=== PATIENT | female | born 1940 | race African-American/Black ===

== ENCOUNTER 2018-05-24 11:41 | Emergency (ER) | payer MEDICARE, OTHER ==
[~2018-05-24] VITALS: Ht 154.9 cm; Wt 72.6 kg
[2018-05-24 12:07] VITALS: BP 133/65
[2018-05-24] MEDS ORDERED: Fleet's Mineral Oil Enema RECTAL ONE (12:30)
[2018-05-24] MEDS ORDERED: COLACE100 MG ORAL (13:30)
[2018-05-24 15:10] VITALS: BP_SYST 133; BP_SYST 134; BP_DIAS 65; BP_DIAS 72
--- NOTE | 2018-05-24 15:43 | Emergency Room Report ---
History of Present Illness General Chief Complaint: General Complaint Source: Patient Present Illness HPI Patient is a 77-year-old female who presented after having increased abdominal discomfort and decreased bowel movements. The patient reported having increased rectal fullness. The she had been taking stool softeners without any improvement. She denies any fever. She denies any severe pain. She reports having passed a small bowel movement this morning. She denies any pain with eating. She states she's been otherwise healthy Allergies: Coded Allergies: No Known Allergies (Unverified , 05/24/18) Patient History Past Medical History: see triage record Now: No Reviewed Nursing Documentation: PMH: Agreed; PSxH: Agreed Nursing Documentation-PMH Past Medical History: No History, Except For Hx Hypertension: Yes Review of Systems All Other Systems: negative except mentioned in HPI Physical Exam Vital Signs Date Time Temp Pulse Resp B/P (MAP) Pulse Ox O2 Delivery O2 Flow Rate FiO2 05/24/18 11:44 98.4 111 18 146/80 96 Room Air 98.4 General Appearance: well appearing, no apparent distress, alert, GCS 15, thin, Chronically Ill Head: normocephalic, atraumatic ENT: hearing grossly normal, normal voice Neck: full range of motion, supple Respiratory: no respiratory distress, speaking full sentences Cardiovascular #1: normal peripheral pulses, regular rate, rhythm Gastrointestinal: normal inspection, normal bowel sounds Musculoskeletal: normal inspection, no calf tenderness Neurologic: normal inspection, alert, oriented x3, responsive, normal gait Psychiatric: mood/affect normal Skin: no rash Medical Decision Making Diagnostic Impression: Primary Impression: Constipation ER Course Patient presented for abdominal pain. Differential diagnoses included ischemic bowel, appendicitis, perforated viscus, abdominal aortic aneurysm, inferior myocardial infarction, viral gastroenteritis Patient was noted to have some constipation. The patient was noted to have a small bowel movement after enema. The patient does not show any evidence of acute abdomen at this time. The patient was given prescription for lactulose and advised follow-up with her primary care physician. The patient is advised to return if she began having increased pain persistent vomiting or other concerns. Last Vital Signs Date Time Temp Pulse Resp B/P (MAP) Pulse Ox O2 Delivery O2 Flow Rate FiO2 05/24/18 15:10 98.2 83 27 134/72 100 Room Air 98.2 Status: improved Disposition: HOME, SELF-CARE Condition: Stable Scripts Docusate Sodium* (COLACE*) 100 Mg Capsule 100 MG ORAL TWICE A DAY, #30 CAP Prov: Rudolph Balbuena MD 05/24/18 Referrals: [facility] (PCP) Patient Instructions: Constipation, Adult Rudolph Balbuena MD May 24, 2018 15:43
== END 2018-05-24 15:10 | disposition home or self-care (01) ==
LOC: EMR 12:10
DX: K59.00 Constipation, unspecified (principal); I10 Essential (primary) hypertension
CPT/HCPCS: 99282

== ENCOUNTER 2018-07-09 13:52 | Emergency (ER) | payer MEDICARE, OTHER ==
[~2018-07-09] VITALS: Ht 160 cm; Wt 63.5 kg
[~2018-07-09 13:52] MED LIST: COLACE100 MG ORAL
[2018-07-09] MEDS ORDERED: BENAZEPRIL HCL10 MG ORAL (14:04)
[2018-07-09 14:08] VITALS: BP 120/81
[2018-07-09] MEDS ORDERED: Morphine Sulfate 2mg/ml Inj IVP ONE (14:30)
[2018-07-09 14:32] LABS: HEMATOCRIT 42.9 % (37.0-47.0); HEMOGLOBIN 13.8 G/DL (12.0-16.0); MEAN CORPUSCULAR VOLUME 83 FL (80-99); PLATELET COUNT 412 K/UL (150-450); RED BLOOD COUNT 5.17 M/UL (4.20-5.40); RED CELL DISTRIBUTION WIDTH 12.2 % (11.6-14.8); WHITE BLOOD COUNT 11.5 K/UL (4.8-10.8)
[2018-07-09 14:42] LABS: ANION GAP 15 mmol/L (5-15); BLOOD UREA NITROGEN 19 mg/dL (7-18); CALCIUM 9.6 MG/DL (8.5-10.1); CARBON DIOXIDE 21 MMOL/L (21-32); CHLORIDE 101 MMOL/L (98-107); POTASSIUM 4.1 MMOL/L (3.5-5.1); SODIUM 137 MMOL/L (136-145)
[2018-07-09 14:46] LABS: ALANINE AMINOTRANSFERASE 38 U/L (12-78); ALBUMIN/GLOBULIN RATIO 0.7 (1.0-2.7); ALKALINE PHOSPHATASE 73 U/L (46-116); ASPARTATE AMINO TRANSFERASE 20 U/L (15-37); BILIRUBIN,TOTAL 0.4 MG/DL (0.2-1.0)
[2018-07-09 15:16] LABS: APPEARANCE,URINE CLEAR; BILIRUBIN, URINE NEGATIVE (NEGATIVE); COLOR,URINE YELLOW; GLUCOSE, URINE (UA) NEGATIVE (NEGATIVE); KETONES,URINE 2+ (NEGATIVE); LEUKOCYTE ESTERASE ,URINE NEGATIVE (NEGATIVE); NITRITE,URINE NEGATIVE (NEGATIVE); PH,URINE 5 (4.5-8.0); PROTEIN,URINE 1+ (NEGATIVE); UROBILINOGEN,URINE 1 MG/DL (0.0-1.0)
--- NOTE | 2018-07-09 15:19 | Emergency Room Report ---
History of Present Illness General Chief Complaint: Multiple Trauma/Fall Source: Patient, Medical Record Present Illness HPI 78-year-old female presents ED for evaluation. Patient states that she fell this morning in her bathroom. [place] weak. States she may have hit her head. No LOC. Complaining of right-sided hip pain. Pain is dull, 8 out of 10, nonradiating. Difficulty walking since the fall. Denies chest pain or shortness of breath. States she's been feeling weak recently and has been unsteady. Lives alone. No other aggravating relieving factors. Denies any other associated symptoms Allergies: Coded Allergies: No Known Allergies (Unverified , 05/24/18) Patient History Past Medical History: none Past Surgical History: none Pertinent Family History: none Social History: Denies: smoking, alcohol use, drug use Now: No Immunizations: UTD Reviewed Nursing Documentation: PMH: Agreed; PSxH: Agreed Nursing Documentation-PMH Past Medical History: No History, Except For Hx Hypertension: Yes Review of Systems All Other Systems: negative except mentioned in HPI Physical Exam Vital Signs Date Time Temp Pulse Resp B/P (MAP) Pulse Ox O2 Delivery O2 Flow Rate FiO2 07/09/18 13:51 98.3 110 18 112/82 100 Room Air 98.2 Sp02 EP Interpretation: reviewed, normal General Appearance: no apparent distress, alert, GCS 15, non-toxic Head: normocephalic, atraumatic Eyes: bilateral eye normal inspection, bilateral eye PERRL ENT: hearing grossly normal, normal pharynx, no angioedema, normal voice Neck: full range of motion, supple/symm/no masses Respiratory: chest non-tender, lungs clear, normal breath sounds, speaking full sentences Cardiovascular #1: regular rate, rhythm, no edema Cardiovascular #2: 2+ carotid (R), 2+ carotid (L), 2+ radial (R), 2+ radial (L) , 2+ dorsalis pedis (R), 2+ dorsalis pedis (L) Gastrointestinal: normal bowel sounds, non tender, soft, non-distended, no guarding, no rebound Rectal: deferred Genitourinary: normal inspection, no CVA tenderness Musculoskeletal: back normal, gait/station normal, normal range of motion, tender - R hip Neurologic: alert, oriented x3, responsive, motor strength/tone normal, sensory intact, speech normal Psychiatric: judgement/insight normal, memory normal, mood/affect normal, no suicidal/homicidal ideation Reflexes: 3+ bicep (R), 3+ bicep (L), 3+ tricep (R), 3+ tricep (L), 3+ knee (R) , 3+ knee (L) Skin: normal color, no rash, warm/dry, well hydrated Lymphatic: no adenopathy Medical Decision Making Diagnostic Impression: Primary Impression: Weakness Additional Impressions: Frequent falls Hip injury Qualified Codes: S79.911A - Unspecified injury of right hip, initial encounter Head injury Qualified Codes: S09.90XA - Unspecified injury of head, initial encounter ER Course Hospital Course 78-year-old female presents ED with headache injury, hip pain status post fall. History of frequent falls Differential diagnoses include: dehydration, UTI, fx, dislocation Clinical course Patient placed on stretcher. on sales development specialist. After initial history and physical I ordered labs, IVFs, CT Head, CT Pelvis labs reviewed- minimal leukocytosis, hemoglobin/hematocrit ok, electrolytes okay , UA negative CT Pelvis - no fx CT brain-unremarkable Patient continues to have pain, unable to ambulate. History of frequent falls. Lives alone. Not safe for discharge Because of insurance patient will be transferred I. I feel this is a highly complex case requiring extensive working including EKG/Rhythm strip, Xray/CT/US, Blood/urine lab work, repeat exams while in ED, and administration of strong opiates/narcotics for pain control, admission to hospital or close patient follow up. Diagnosis - weakness, frequent falls, hip injury, head injury transferred in serious condition Labs Test 07/09/18 14:12 07/09/18 14:50 White Blood Count 11.5 K/UL (4.8-10.8) Red Blood Count 5.17 M/UL (4.20-5.40) Hemoglobin 13.8 G/DL (12.0-16.0) Hematocrit 42.9 % (37.0-47.0) Mean Corpuscular Volume 83 FL (80-99) Mean Corpuscular Hemoglobin 26.7 PG (27.0-31.0) Mean Corpuscular Hemoglobin Concent 32.2 G/DL (32.0-36.0) Red Cell Distribution Width 12.2 % (11.6-14.8) Platelet Count 412 K/UL (150-450) Mean Platelet Volume 5.7 FL (6.5-10.1) Neutrophils (%) (Auto) % (45.0-75.0) Lymphocytes (%) (Auto) % (20.0-45.0) Monocytes (%) (Auto) % (1.0-10.0) Eosinophils (%) (Auto) % (0.0-3.0) Basophils (%) (Auto) % (0.0-2.0) Differential Total Cells Counted 100 Neutrophils % (Manual) 84 % (45-75) Lymphocytes % (Manual) 12 % (20-45) Monocytes % (Manual) 4 % (1-10) Eosinophils % (Manual) 0 % (0-3) Basophils % (Manual) 0 % (0-2) Band Neutrophils 0 % (0-8) Platelet Estimate Adequate Platelet Morphology Normal Red Blood Cell Morphology Normal Sodium Level 137 MMOL/L (136-145) Potassium Level 4.1 MMOL/L (3.5-5.1) Chloride Level 101 MMOL/L (98-107) Carbon Dioxide Level 21 MMOL/L (21-32) Anion Gap 15 mmol/L (5-15) Blood Urea Nitrogen 19 mg/dL (7-18) Creatinine 1.0 MG/DL (0.55-1.30) Estimat Glomerular Filtration Rate mL/min (>60) Glucose Level 132 MG/DL (74-106) Calcium Level 9.6 MG/DL (8.5-10.1) Total Bilirubin 0.4 MG/DL (0.2-1.0) Aspartate Amino Transf (AST/SGOT) 20 U/L (15-37) Alanine Aminotransferase (ALT/SGPT) 38 U/L (12-78) Alkaline Phosphatase 73 U/L (46-116) Total Protein 7.3 G/DL (6.4-8.2) Albumin 3.0 G/DL (3.4-5.0) Globulin 4.3 g/dL Albumin/Globulin Ratio 0.7 (1.0-2.7) Urine Color Yellow Urine Appearance Clear Urine pH 5 (4.5-8.0) Urine Specific [place] 1.020 (1.005-1.035) Urine Protein 1+ (NEGATIVE) Urine Glucose (UA) Negative (NEGATIVE) Urine Ketones 2+ (NEGATIVE) Urine Blood Negative (NEGATIVE) Urine Nitrite Negative (NEGATIVE) Urine Bilirubin Negative (NEGATIVE) Urine Urobilinogen 1 MG/DL (0.0-1.0) Urine Leukocyte Esterase Negative (NEGATIVE) Urine RBC 0-2 /HPF (0 - 2) Urine WBC 0-2 /HPF (0 - 2) Urine Squamous Epithelial Cells Few /LPF (NONE/OCC) Urine Bacteria Few /HPF (NONE) Urine Mucus Many /LPF (NONE/OCC) CT/MRI/US Diagnostic Results CT/MRI/US Diagnostic Results #1: Imaging Test Ordered: CT head Impression no acute process CT/MRI/US Diagnostic Results #2: Imaging Test Ordered: CT Pelvis Impression no acute process Last Vital Signs Date Time Temp Pulse Resp B/P (MAP) Pulse Ox O2 Delivery O2 Flow Rate FiO2 07/09/18 14:30 98.2 07/09/18 14:08 96 23 120/81 100 Room Air Status: improved Disposition: XFER [facility] Condition: Serious Referrals: [facility] (PCP) Irvin Perry MD Jul 09, 2018 15:19
--- NOTE | 2018-07-09 15:26 | Diagnostic Imaging Report ---
Indication: Headache Technique: Contiguous 5 mm thick transaxial imaging of the head obtained in a Siemens Sensation [address] scanner. Soft tissue and bone windows generated. Automatic Exposure Control was utilized. Total Dose length Product (DLP): 1323.[address] Dose Index Volume (CTDIvol): 70.38 mGy Comparison: none Findings: There is mild prominence of the ventricles, basal cisterns, and cerebral sulci consistent with atrophy. Mild, nonspecific, white matter hypoattenuation is noted throughout the brain consistent with chronic small vessel disease. There is no midline shift, edema, acute hemorrhage, mass effect, or abnormal extra-axial fluid collections. Bones and extra osseous soft tissues are unremarkable. Impression: No acute intracranial bleed, mass effect or edema. Mild atrophy of the brain. Nonspecific white matter hypoattenuation probably due to chronic small vessel disease. The CT scanner at [facility] is accredited by the [employer] and the scans are performed using dose optimization techniques as appropriate to a performed exam including Automatic Exposure control.
--- NOTE | 2018-07-09 15:32 | Diagnostic Imaging Report ---
Indication: Abdominal pain Technique: Continuous helical transaxial imaging of the pelvis was obtained from the iliac crest to the pubic symphysis. Coronal 2-D reformats were also obtained. Study obtained in a Siemens sensation [address] Intravenous non-ionic contrast was administered. Total Dose length Product (DLP): 341.[address] Dose Index Volume (CTDIvol): 10.87 mGy Comparison: None Findings: No acute fracture is identified. There is no malalignment identified. There is a moderate degree of fecal material within the rectum which is distended. There is perirectal soft tissue stranding and some wall thickening as well consistent with proctitis. The appendix is partially visualized and appears normal. There are diverticula in the sigmoid colon noted. The uterus is absent. Urinary bladder is unremarkable. L4-5, L5-S1 facets appear moderately hypertrophic. There mild anterolisthesis at L4-5 noted. IMPRESSION: No acute injury. Proctitis and fecal impaction. Normal appendix Status post hysterectomy Diverticulosis of the sigmoid colon. Degenerative changes of the lower lumbar spine as described above. The CT scanner at [facility] is accredited by the [employer] and the scans are performed using dose optimization techniques as appropriate to a performed exam including Automatic Exposure control.
[2018-07-09 15:44] VITALS: BP 146/75
[2018-07-09 17:12] VITALS: BP 146/75
[2018-07-09] MEDS ORDERED: DOCUSATE S50 MG/5 ML PO (17:42)
[2018-07-09] MEDS ORDERED: VITAMIN D250000 UNI1 ORAL (17:42)
== END 2018-07-09 17:12 | disposition short-term general hospital (02) ==
LOC: EDBD 13:52 → EMR 14:22
DX: S79.911A Unspecified injury of right hip, initial encounter (principal); S09.90XA Unspecified injury of head, initial encounter; I10 Essential (primary) hypertension; R53.1 Weakness; R26.2 Difficulty in walking, not elsewhere classified; Z91.81 History of falling; W18.39XA Other fall on same level, initial encounter; Y92.091 Bathroom in other non-institutional residence as the place of occurrence of the external cause
CPT/HCPCS: 36415; 70450; 72192; 80053; 81001; 85007; 85025; 96361; 96374; 99285; J2270